=== PATIENT | female | born 1940 | race Caucasian/White ===

== ENCOUNTER → 2016-07-23 | Outpatient (REF) | payer MEDICARE, OTHER ==
[2016-07-23 10:30] LABS: BASOPHILS % (AUTO) 0 % (0-2); EOSINOPHILS # (AUTO) 0.2 10^3uL; EOSINOPHILS % (AUTO) 2 % (0-4); MEAN CORPUSCULAR VOLUME 91 FL (80-100); MEAN PLATELET VOLUME 11.6 FL (6.0-9.5); MONOCYTES # (AUTO) 1.1 X10^3; MONOCYTES % (AUTO) 11 % (3-11); NEUTROPHILS # (AUTO) 6.4 X10^3; NEUTROPHILS % (AUTO) 66 % (51-67); PLATELET COUNT 235 10^3uL (150-450); WHITE BLOOD COUNT 9.72 10^3uL (4.0-11.0)
[2016-07-23 10:45] LABS: ALBUMIN 4.3 g/dL (3.4-5.0); ANION GAP 16.5 MEQ/L (3-15); CALCULATED IONIZED CALCIUM 4.2 mg/dL (3.8-4.6); TOTAL PROTEIN 7.2 g/dL (6.4-8.5)
[2016-07-23 10:45] LABS: BILIRUBIN,URINE Negative (Negative); CLARITY,URINE Clear; COLOR,URINE Yellow; GLUCOSE, URINE (UA) Negative (Negative); LEUKOCYTE ESTERASE ,URINE Negative (Negative); UROBILINOGEN,URINE 0.2 mg/dL (0.2-1.0)
== END ==
LOC: LAB 09:58
PROVIDERS: ATTEND Family Medicine
DX: R91.1 Solitary pulmonary nodule (principal); R07.89 Other chest pain; J43.1 Panlobular emphysema; F41.8 Other specified anxiety disorders; K58.9 Irritable bowel syndrome, unspecified
CPT/HCPCS: 80053; 81003; 84443; 85025

== ENCOUNTER → 2016-08-23 | Outpatient (REF) | payer MEDICARE ==
[2016-08-23 11:53] LABS: BASOPHILS % (AUTO) 1 % (0-2); EOSINOPHILS # (AUTO) 0.4 10^3uL; EOSINOPHILS % (AUTO) 4 % (0-4); LYMPHOCYTES # (AUTO) 2.3 X10^3; MEAN CORPUSCULAR HEMOGLOBIN 30.4 PG (26.0-34.0); MEAN CORPUSCULAR HGB CONC 33.6 g/dL (31.0-37.0); MEAN CORPUSCULAR VOLUME 90 FL (80-100); MEAN PLATELET VOLUME 11.1 FL (6.0-9.5); MONOCYTES % (AUTO) 12 % (3-11); NEUTROPHILS # (AUTO) 4.7 X10^3; NEUTROPHILS % (AUTO) 56 % (51-67); PLATELET COUNT 279 10^3uL (150-450); WHITE BLOOD COUNT 8.44 10^3uL (4.0-11.0)
[2016-08-23 11:57] LABS: ANION GAP 12.7 MEQ/L (3-15)
[2016-08-23 12:01] LABS: BILIRUBIN,URINE Negative (Negative); CLARITY,URINE Clear; COLOR,URINE Yellow; GLUCOSE, URINE (UA) Negative (Negative); LEUKOCYTE ESTERASE ,URINE Negative (Negative); UROBILINOGEN,URINE 0.2 mg/dL (0.2-1.0)
== END ==
LOC: LAB 11:27
PROVIDERS: ATTEND Family Medicine
DX: R10.32 Left lower quadrant pain (principal)
CPT/HCPCS: 80048; 81003; 85025

== ENCOUNTER → 2016-08-24 | Outpatient (CLI) | payer MEDICARE, OTHER | LOC: RAD 08:27 | PROVIDERS: ATTEND Family Medicine | DX: R10.32 Left lower quadrant pain (principal); K57.30 Diverticulosis of large intestine without perforation or abscess without bleeding | CPT/HCPCS: 74178; Q9967 ==

== ENCOUNTER → 2016-10-06 | Outpatient (CLI) | payer MEDICARE ==
--- NOTE | 2016-10-06 14:36 | Diagnostic Imaging Report ---
INDICATION: Left chest pain After intravenous administration of 25.3 mCi technetium 99m MDP, anterior, posterior and oblique views of the thoracic, lumbar and pelvic regions are obtained. There is focal increased uptake involving the posterolateral aspect of the left eighth rib which would be consistent with healing fracture. No other area of abnormal increased or decreased uptake is seen. There is activity seen within both kidneys. IMPRESSION: Localized uptake involving the posterior lateral aspect of left eighth rib which would be consistent with healing fracture. Dictated by: Dictated on workstation # [id number]
== END ==
LOC: RAD 07:42
PROVIDERS: ATTEND Internal Medicine Sleep Medicine
DX: R07.89 Other chest pain (principal)
CPT/HCPCS: 78300; A9503

== ENCOUNTER → 2016-10-13 | Outpatient (CLI) | payer MEDICARE ==
--- NOTE | 2016-10-13 11:38 | Diagnostic Imaging Report ---
Indication: 76-year-old postmenopausal female. Comparison: None available. Baseline examination. Technique: DEXA of the lumbar spine and bilateral hips was performed. Findings: The L1-L4 vertebrae were used for assessment of the lumbar spine. The bone mineral density for the total lumbar spine is 0.982 g/cm2, and the T score is -1.6. The left total hip has a bone density of 0.646 g/cm2, and the T score is -3.0. The right total hip has a bone density of 0.643 g/cm2, and the T score is -3.0. Impression: 1. Osteoporosis. 2. If not already performed, then initiation of medical therapy for osteoporosis should be considered. 3. Advise followup DEXA in 12 months to assess response to therapy. Dictated by: Dictated on workstation # [id number]
== END ==
LOC: RAD 10:35
PROVIDERS: ATTEND Family Medicine
DX: Z78.0 Asymptomatic menopausal state (principal); M81.0 Age-related osteoporosis without current pathological fracture
CPT/HCPCS: 77080

== ENCOUNTER 2016-10-29 18:00 | Emergency (ER) | payer MEDICARE ==
[~2016-10-29] VITALS: Ht 165.1 cm; Wt 66.8 kg
[2016-10-29] MEDS ORDERED: SODIUM CHLORIDE FLUSH 3 ML SYR IV PRN (19:15)
[2016-10-29] MEDS ORDERED: KETOROLAC 15 MG/ML (TORADOL) 1 ML VIAL IV ONE (19:15)
[2016-10-29] MEDS ORDERED: SODIUM CHLORIDE FLUSH 10 ML SYR IV PRN (19:15)
[2016-10-29 19:49] LABS: BASOPHILS % (AUTO) 0 % (0-2); EOSINOPHILS # (AUTO) 0.3 10^3uL; EOSINOPHILS % (AUTO) 2 % (0-4); LYMPHOCYTES # (AUTO) 2.2 X10^3; MEAN CORPUSCULAR HEMOGLOBIN 29.5 PG (26.0-34.0); MEAN CORPUSCULAR HGB CONC 32.7 g/dL (31.0-37.0); MEAN CORPUSCULAR VOLUME 90 FL (80-100); MEAN PLATELET VOLUME 10.5 FL (6.0-9.5); MONOCYTES # (AUTO) 0.9 X10^3; MONOCYTES % (AUTO) 8 % (3-11); NEUTROPHILS # (AUTO) 8.1 X10^3; NEUTROPHILS % (AUTO) 70 % (51-67); PLATELET COUNT 296 10^3uL (150-450); WHITE BLOOD COUNT 11.45 10^3uL (4.0-11.0)
[2016-10-29 19:54] LABS: BILIRUBIN,URINE Negative (Negative); COLOR,URINE Yellow; GLUCOSE, URINE (UA) Negative (Negative); LEUKOCYTE ESTERASE ,URINE Negative (Negative); UROBILINOGEN,URINE 0.2 mg/dL (0.2-1.0)
[2016-10-29 19:55] LABS: CLARITY,URINE Slightly Cloudy
[2016-10-29 20:02] LABS: ALBUMIN 4.3 g/dL (3.4-5.0); ANION GAP 15.4 MEQ/L (3-15); CALCULATED IONIZED CALCIUM 3.9 mg/dL (3.8-4.6); TOTAL PROTEIN 7.6 g/dL (6.4-8.5)
[2016-10-29] MEDS ORDERED: MOXI400T PO (22:27)
[2016-10-29] MEDS ORDERED: HYDR-3702 PO (22:27)
[2016-10-29] MEDS ORDERED: ED- HYDROcodone/ACETAMINOPHEN 5MG/325MG (NORCO) 6 TABLETS/BTL PO ONE (22:30)
[2016-10-29] MEDS ORDERED: LEVOFLOXACIN 250 MG TAB (LEVAQUIN) PO SCH (22:30)
[2016-10-29] MEDS ORDERED: metroNIDAZOLE 500 MG (FLAGYL) TABLET PO ONE (22:30)
[2016-10-29 22:56] VITALS: BP 157/55
--- NOTE | 2016-10-30 06:30 | Diagnostic Imaging Report ---
PROCEDURE: CT abdomen and pelvis with and without contrast. TECHNIQUE: Precontrast acquisitions were acquired through the abdomen and pelvis. Multiple contiguous axial images were obtained through the abdomen and pelvis after the administration of intravenous contrast. INDICATION: Left lower quadrant abdominal pain Comparison is made with prior examination from 08/24/16. FINDINGS: There is a subacute left lower rib fracture. There is a tiny subpleural noncalcified nodular density in the left lung base. Minimal scarring in both lung bases. The liver is normal in size without focal lesions. The gallbladder appears contracted. There is prominence of the common bile duct. Spleen is unremarkable. Pancreas is normal. The adrenal glands are unremarkable. There is no evidence of nephrolithiasis or obstructive uropathy. There is moderate atherosclerotic calcification of the aorta which is nonaneurysmal. There is diverticular disease without evidence of diverticulitis. There is no pelvic mass, adenopathy or free fluid. Bladder is unremarkable. There are degenerative changes in the spine. IMPRESSION: Diverticular disease without evidence of diverticulitis. Specifically, there is no small bowel obstruction or appendicitis. No evidence of nephrolithiasis or obstructive uropathy. Prominence of the common bile duct up to 1 cm. While this may be related to patient's age, the possibility of distal common bile duct stone cannot be entirely excluded. Recommend clinical correlation for biliary obstruction. A 3 mm noncalcified subpleural nodular density left lung base with minimal basilar scarring. Dictated by: Dictated on workstation # [id number]
== END 2016-10-29 22:58 | disposition home or self-care (01) ==
LOC: ED 18:01
DX: R10.32 Left lower quadrant pain (principal)
CPT/HCPCS: 36415; 74178; 80053; 81003; 82150; 83690; 85025; 86140; 96361; 96374; 99284; A9270; J1885; J7030; Q9967; 99283

== ENCOUNTER → 2016-11-05 | Outpatient (CLI) | payer MEDICARE ==
[~2016-11-05] MED LIST: HYDR-3702 PO; MOXI400T PO
--- NOTE | 2016-11-05 11:35 | Diagnostic Imaging Report ---
EXAMINATION: Pelvis, single view. Left hip, two additional views. Four total images. COMPARISON: CT abdomen and pelvis October 29, 2016. HISTORY: 76-year-old female, left hip pain for three weeks. FINDINGS: The bones appear demineralized. The sacroiliac joints and pubic symphysis are not abnormally widened. The right hip is not obviously dislocated. The left hip is not dislocated. There is no identified acute fracture. Joint spaces of both hips are well preserved. There is no prominent osteophyte formation. IMPRESSION: 1. The bones appear demineralized. 2. No identified acute bony abnormality of the pelvis or left hip. 3. Unremarkable appearance of the hip joints. Dictated by: Dictated on workstation # [id number]
== END ==
LOC: RAD 10:17
PROVIDERS: ATTEND Physician Assistant Surgical
DX: M25.552 Pain in left hip (principal)

== ENCOUNTER → 2016-11-05 | Outpatient (REF) | payer MEDICARE ==
[2016-11-05 12:24] LABS: BASOPHILS % (AUTO) 0 % (0-2); EOSINOPHILS # (AUTO) 0.2 10^3uL; EOSINOPHILS % (AUTO) 3 % (0-4); LYMPHOCYTES # (AUTO) 1.8 X10^3; MEAN CORPUSCULAR VOLUME 91 FL (80-100); MONOCYTES # (AUTO) 0.9 X10^3; MONOCYTES % (AUTO) 11 % (3-11); NEUTROPHILS # (AUTO) 5.2 X10^3; NEUTROPHILS % (AUTO) 64 % (51-67); PLATELET COUNT 256 10^3uL (150-450); WHITE BLOOD COUNT 8.09 10^3uL (4.0-11.0)
[2016-11-05 12:30] LABS: ALBUMIN 4.1 g/dL (3.4-5.0); ANION GAP 14.5 MEQ/L (3-15); CALCULATED IONIZED CALCIUM 4.3 mg/dL (3.8-4.6); TOTAL PROTEIN 7.2 g/dL (6.4-8.5)
[2016-11-05 12:49] LABS: ERYTHROCYTE SEDIMENTATION RT* 11 mm/hr (0-23)
== END ==
LOC: LAB 12:13
PROVIDERS: ATTEND Physician Assistant Surgical
DX: M25.552 Pain in left hip (principal)
CPT/HCPCS: 80053; 85025; 85652; 86140

== ENCOUNTER → 2016-11-15 | Outpatient (CLI) | payer MEDICARE | LOC: RAD 17:21 | PROVIDERS: ATTEND Physician Assistant Surgical | DX: Z53.8 Procedure and treatment not carried out for other reasons (principal) ==